=== PATIENT | female | born 1980 | race Caucasian/White ===

== ENCOUNTER 2020-06-30 00:30 | Emergency (ER) | payer OTHER ==
[~2020-06-30] VITALS: Ht 170.2 cm; Wt 81.7 kg
== END 2020-06-30 03:30 | disposition home or self-care (01) ==
LOC: ER 00:30
DX: S61.216A Laceration without foreign body of right little finger without damage to nail, initial encounter (principal); Z23 Encounter for immunization; W25.XXXA Contact with sharp glass, initial encounter
CPT/HCPCS: 12001; 90471; 90714; 99282-25